=== PATIENT | male | born 1995 | race Two or more races ===

== ENCOUNTER 2018-10-22 07:21 | Emergency (ER) | payer BC ==
[~2018-10-22] VITALS: Ht 172.7 cm; Wt 127.3 kg
[2018-10-22] MEDS ORDERED: TraMADol HCL 50 MG TABLET PO ONE (08:00)
[2018-10-22] MEDS ORDERED: PENICILLIN V POTASSIUM 500 MG TABLET PO ONE (08:00)
[2018-10-22] MEDS ORDERED: KETOROLAC TROMETHAMINE 60 MG/2 ML VIAL IM ONE (08:00)
[2018-10-22 08:05] VITALS: BP 128/80
== END 2018-10-22 08:12 | disposition home or self-care (01) ==
LOC: EMS 07:22
DX: K08.89 Other specified disorders of teeth and supporting structures (principal)
CPT/HCPCS: 96372; 99283; J1885